=== PATIENT | male | born 1985 | race Caucasian/White ===

== ENCOUNTER 2016-09-28 17:24 | Emergency (ER) | payer SELFPAY ==
[~2016-09-28] VITALS: Ht 210.8 cm; Wt 118.0 kg
[2016-09-28 18:10] VITALS: BP 133/77
== END 2016-09-28 18:05 | disposition home or self-care (01) ==
LOC: ED 17:27
DX: J06.9 Acute upper respiratory infection, unspecified (principal)
CPT/HCPCS: 99282; 99283

== ENCOUNTER 2016-12-15 20:32 | Emergency (ER) | payer BC ==
[~2016-12-15] VITALS: Ht 182.9 cm; Wt 118.2 kg
[~2016-12-15 20:32] MED LIST: ACDPT PO; AZIT250T81 PO; CEPH-507 PO; CEPH500C PO; HYDR-3702 PO; HYDR-3811 PO; INDM25C PO; LTH300C PO; METH4TAB27 PO; NF-TORA10 PO; PRCD5U PO
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
[2016-12-15] MEDS ORDERED: CARI1.5C PO (20:48)
[2016-12-15] MEDS: KETOROLAC 60 MG/2 ML (TORADOL) VIAL IM ONE (22:07)
[2016-12-15] MEDS ORDERED: KETO10TA PO (22:07)
[2016-12-15 22:30] VITALS: BP 111/72
== END 2016-12-15 22:25 | disposition home or self-care (01) ==
LOC: ED 20:34
DX: S39.012A Strain of muscle, fascia and tendon of lower back, initial encounter (principal); X58.XXXA Exposure to other specified factors, initial encounter; Y93.89 Activity, other specified
CPT/HCPCS: 96372; 99282; J1885; 99283

== ENCOUNTER → 2016-12-24 | Outpatient (CLI) | payer BC ==
[~2016-12-24] MED LIST changes: +CARI1.5C PO; +KETO10TA PO
--- NOTE | 2016-12-24 12:18 | Diagnostic Imaging Report ---
INDICATION: Chronic low back pain. COMPARISON: None available. TECHNIQUE: 3 views of lumbar spine. FINDINGS: No compression deformity. No spondylolisthesis. Lumbar spine is normal in alignment. Intervertebral disc space heights are maintained. There is ill-definition of the margins of the SI joints raising some suspicion for sacroiliitis. There is a single surgical clip to the right of the L4-L5 disc space. IMPRESSION: 1. Findings suggestive of bilateral sacroiliitis. Consider CT or MRI of the pelvis for further evaluation. 2. No abnormality of the lumbar spine. Dictated by: Dictated on workstation # [id number]
== END ==
LOC: RAD 11:41
PROVIDERS: ATTEND Family Medicine
DX: M54.42 Lumbago with sciatica, left side (principal)
CPT/HCPCS: 72100

== ENCOUNTER 2017-01-07 13:00 | Outpatient (RCR) | payer BC ==
--- NOTE | 2017-01-05 09:20 | PT/OT/ST INITIAL EVALUATION ---
Department of Health and Human Services Form Approved Health Care Financing Administration OMB No. [phone] PLAN OF CARE/ASSESSMENT FOR OUTPATIENT REHABILITATION (Complete for Initial Claims Only) 1. PATIENT'S NAME Roger Kitchen 2. ACC # [id number]` [id number] 4. PROVIDER NO. NA 5. TYPE: PT 6. PRIOR HOSPITALIZATION NA 7. PRIMARY DX Low back pain 8. SECONDARY DX NA 9. ONSET DATE 12/14/2016 10. REFERRAL DATE NA 11. SOC. DATE 12/31/2016 12. TIME OF EVAL 9:10 a.m. to 10:17 a.m. 12. REFERRING PHYSICIAN Dr. Bradshaw 13. CHARGES/UNITS 14. G CODES NA 15. PRIOR LEVEL OF FUNCTION; PERTINENT HISTORY (Prior therapy results, reason for referral.) S: Prior to therapy the patient did consent to today's evaluation and treatment. The patient is a 31-year-old male referred to physical therapy by Dr. Reji Bradshaw to address chronic bilateral low back pain with left-sided sciatica. Personal health rating: The patient rates overall and general health as good. 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 The patient reports a gradual onset of low back pain, upon which is relieved with sitting, as well as stretching at work. The patient reports having the most pain at the end of a 9-hour shift at [employer]. Primary Complaint: The patient is primarily complaining of stiffness and pain in the bilateral low back. The patient has been taking seated rest breaks at work, as well as trying to stretch, but that is not helping his pain. Prior level of function: Prior to this back pain, the patient was having no limitations throughout his day, as well as at work, and also at home when performing functional tasks and self-care. Current level of function: The patient reports being unable to stand at work for long periods of time without low back pain. It is making it difficult for him to complete a full shift without taking extra breaks. Therapy History: The patient reports never having been to physical therapy for any prior or for the current complaint. Pain level: Max pain level 8/10, current pain level 5/10. Obstacles to delivery of care: No obstacles of delivery of care identified at this time. Aggravating factors: The patient reports having the most pain after prolonged periods of standing. Relieving factors: The patient reports ice helping temporarily with his pain, but does not get any relief with pain medications. Diagnostic testing: The patient reports having an x-ray, upon which he was told that there is preliminary arthritis in the spine. Past medical history: The patient reports having a right knee scope in 2011 and also having an appendectomy. Patient's Goal: The patient reports desiring to return to full function at work without pain. 16. INITIAL ASSESSMENT/SAFETY PRECAUTIONS/MEDICAL COMPLICATIONS (Level of function at start of care. Be specific, use objective measures, list problems.) O: APPEARANCE, OBSERVATION AND GAIT: The patient is a pleasant middle-aged overweight man, who presents to physical therapy with forward head posture, rounded shoulders, and mild genu valgum upon standing. The patient also has mild pronation in static standing. PALPATION: Upon palpation, the patient has bilateral muscle tightness in both thoracic and lumbar paraspinals. SPECIAL TESTS: The patient tests positive with spring testing in the lower lumbar segments at L3 and L4. The patient has 2 out of 4 reflexes at the patellar and Achilles tendon. The patient tests negative for the hip scour bilaterally, as well as testing negative for FADER and ANA bilaterally. RANGE OF MOTION/FLEXIBILITY: Hamstring length on the left 133 degrees, on the right 140 degrees. The patient has bilateral hip flexor tightness as demonstrated with the Christian test bilaterally. Trunk flexion is 10%, extension full range of motion. Right rotation 25% limited, left rotation 10% limited. Right side bend 25% limited, left side bend 10% limited. STRENGTH: Hip flexion on the right 4+/5, left 5/5. Knee extension right 5/5, left 5/5. Knee flexion right 5/5, left 5/5. Hip internal rotation right 5/5, left 5/5. External rotation right 4/5, left 4/5. Hip abduction right 4+/5, left 4+/5. TODAY'S TREATMENT: Today's treatment consisted of education about the findings of the physical therapy evaluation, as well as the roll of physical therapy in the plan of care. Light therapeutic exercise was initiated, initiated of a home exercise program with stretching was also initiated. 17. INITIAL POC: (Specify procedures, modalities, short and prison goals) A: PROGNOSIS: Upon completion of this initial PT evaluation, the patient presents with a good prognosis for therapy pending regular attendance and therapy sessions and compliance with the home exercise program. Skilled physical therapy services are needed for increased range of motion, strengthening, postural education, and job related work training in order to reach patient goals. OUTCOME ASSESSMENT: The patient completed the Modified Oswestry low back pain disability questionnaire with a disability score of 38% today. INFORMED CONSENT: The diagnosis, prognosis, treatment plan, risks and expected outcomes were discussed with the patient and the patient agreed to today's established plan of care. SHORT TERM GOALS: 1. In 1 week, the patient will be independent and compliant with home exercise program in order to promote progress and therapy. 2. In 3 weeks, the patient will demonstrate bilateral increased hamstring flexibility to 155 degrees in order to reduce strain on the low back. 3. In 4 weeks, the patient will demonstrate an increase in right trunk rotation from 25% limited to 10% limited in order to complete job duties. 4. The patient will demonstrate normal iliopsoas length as demonstrated by maintaining neutral pelvic alignment in supine in 4 weeks. 5. The patient will report a decrease Oswestry disability score from 38% to 10% in 6 weeks in order to work without pain or limitations. P: Plan to treat the patient 2 times a week for 6 weeks in order to address range of motion deficits, strength deficits, as well as posture. Treatment to include modalities as indicated to relieve pain or to assist in manual therapies. Manual therapies including myofascial release, joint mobilizations, and soft tissue mobilizations. Therapeutic exercise to improve strength and range of motion, neural reeducation, and progressive home exercise program. Thank you for the referral of this patient today Peyton Guerrero, SPT dictating for Dany Garcia, PT 18. FREQUENCY 2 times per week 19. DURATION 6 weeks 20. FUNCTIONAL LEVEL (End of claim period) 21. PHYSICIAN SIGNATURE ? ON FILE OR ENTER HERE: 22. DATE: I certify the need for these services furnished under this plan of care and if for partial hospitalization. 23. CERTIFICATION FROM THROUGH FORM [id number]
== END 2017-01-26 10:30 | disposition home or self-care (01) ==
LOC: PT 13:00
PROVIDERS: ATTEND Family Medicine
DX: M54.42 Lumbago with sciatica, left side (principal)